=== PATIENT | male | born 1970 | race Caucasian/White ===

== ENCOUNTER 2022-01-29 08:02 | Emergency (ER) | payer OTHER ==
[2022-01-29 08:15] VITALS: BP 140/89; PULSE 103; RESP 18; TEMP 98.9; BMI 24.2
[2022-01-29] MEDS ORDERED: AMOXICILLIN 500 MG CAPSULE (FP) PO ONE (08:36)
[2022-01-29] MEDS ORDERED: IBUPROFEN 600 MG TABLET (FP) PO ONE ×2 (08:36→08:40)
[2022-01-29] MEDS ORDERED: AMOXICILLIN 250 MG CAPSULE ONE (08:39)
== END 2022-01-29 09:31 | disposition home or self-care (01) ==
LOC: JER 08:02
DX: U07.1 COVID-19 (principal); R50.9 Fever, unspecified; J02.9 Acute pharyngitis, unspecified
CPT/HCPCS: 0241U-QW; 87651; 99283-25

== ENCOUNTER 2023-12-27 11:47 | Inpatient (IN) | payer OTHER ==
[2023-12-27] MEDS ORDERED: PANTOPRAZOLE SODIUM 40 MG VIAL ONE (13:26)
[2023-12-27] MEDS ORDERED: OCTREOTIDE ACETATE 100 MCG/1 ML ONE ×2 (13:27→14:42)
[2023-12-27 13:42] LABS: BASO % 0.8 % (0-2.0); EOS % 4.6 % (0-4.5); HEMATOCRIT 40.4 % (35.4-49); HEMOGLOBIN 13.9 GM/dL (11.7-16.9); LYMPH % 13.4 % (8-40); MCHC 34.3 g/dl (32.0-35.9); MEAN PLT VOLUME 10.4 fl (7.5-11.1); MONO % 8.3 % (3.8-10.2); NEUT % 72.9 % (42.8-82.8); PLATELET COUNT 68 10^3/uL (134-434); RBC 3.96 M/mm3 (4.00-5.60); RDW 14.1 % (11.9-15.9); WHITE BLOOD COUNT 6.2 K/mm3 (4.0-10.0)
[2023-12-27] MEDS: PANTOPRAZOLE SODIUM 40 MG VIAL IVPUSH ONE (13:46)
[2023-12-27] MEDS: LACTATED RINGERS SOLUTION 1000 ML INFUS.BAG IV ONE (13:46)
[2023-12-27] MEDS: OCTREOTIDE ACETATE 50 MCG/1 ML - 1 ML VIAL IVPUSH ONE (13:46)
[2023-12-27 13:49] LABS: INR 1.49 (0.83-1.09); PROTHROMBIN TIME (PATIENT) 16.6 SEC (9.7-13.0)
[2023-12-27] MEDS ORDERED: ONDANSETRON 4 MG/2 ML VIAL ONE ×2 (13:51→14:42)
[2023-12-27 13:52] LABS: ACTIVATED PTT 37.8 SECONDS (25.2-36.5)
[2023-12-27 13:59] LABS: POTASSIUM 4.5 mmol/L (3.5-5.1)
[2023-12-27 14:01] LABS: BLOOD UREA NITROGEN 11.6 mg/dL (7-18); CALCIUM 9.1 mg/dL (8.5-10.1)
[2023-12-27 14:05] LABS: CREATININE 0.5 mg/dL (0.55-1.3)
[2023-12-27 14:07] LABS: BILIRUBIN,TOTAL 5.5 mg/dL (0.2-1); TOT PROT 8.1 g/dl (6.4-8.2)
[2023-12-27] MEDS ORDERED: diazePAM CARPU-JECT 10 MG/2 ML DISP.SYRIN ONE (14:41)
[2023-12-27] MEDS ORDERED: THIAMINE 100 MG TABLET ONE (14:42)
[2023-12-27] MEDS ORDERED: OCTREOTIDE ACETATE 500 MCG/1 ML - 1 ML VIAL ONE (14:43)
[2023-12-27 14:55] LABS: HIV INTERPRETATION NEGATIVE (NEGATIVE)
[2023-12-27] MEDS ORDERED: RAPID SEQUENCE INTUBATION KIT NR ONE ×2 (15:14→15:20)
[2023-12-27] MEDS ORDERED: KETAMINE HCL 200 MG/20 ML VIAL ONE (15:20)
[2023-12-27] MEDS: OCTREOTIDE ACETATE 200 MCG, OCTREOTIDE ACETATE 1,000 MCG in DEXTROSE 5%-WATER - 496 ML IVPB SCH (15:48)
[2023-12-27] MEDS: ONDANSETRON 4 MG/2 ML VIAL IVPB ONE (15:48)
[2023-12-27] MEDS: diazePAM CARPU-JECT 10 MG/2 ML DISP.SYRIN IVPUSH ONE (15:48)
[2023-12-27] MEDS ORDERED: PROPOFOL 20 ML ONE (15:56)
[2023-12-27] MEDS ORDERED: MIDAZOLAM HCL 2 MG/2 ML SINGLE DOSE VIAL ONE (15:56)
[2023-12-27 16:40] LABS: BASO % 1.2 % (0-2.0); EOS % 5.4 % (0-4.5); HEMATOCRIT 35.6 % (35.4-49); HEMOGLOBIN 12.1 GM/dL (11.7-16.9); LYMPH % 11.9 % (8-40); MCH 34.3 pg (25.7-33.7); MCHC 33.9 g/dl (32.0-35.9); MEAN CELL VOLUME 101.2 fl (80-96); MEAN PLT VOLUME 10.5 fl (7.5-11.1); MONO % 6.6 % (3.8-10.2); NEUT % 74.9 % (42.8-82.8); PLATELET COUNT 64 10^3/uL (134-434); RBC 3.52 M/mm3 (4.00-5.60); RDW 15.4 % (11.9-15.9); WHITE BLOOD COUNT 7.7 K/mm3 (4.0-10.0)
[2023-12-27 16:46] LABS: POTASSIUM 4.9 mmol/L (3.5-5.1)
[2023-12-27] MEDS ORDERED: THIAMINE HCL 200 MG/2 ML VIAL ONE (16:47)
[2023-12-27] MEDS ORDERED: MIDAZOLAM IN 0.9 % SOD.CHLORID 1 MG/1 ML PLAST..BAG ONE (16:47)
[2023-12-27 16:48] LABS: CALCIUM 8.2 mg/dL (8.5-10.1)
[2023-12-27 16:49] LABS: BLOOD UREA NITROGEN 13.3 mg/dL (7-18)
[2023-12-27 16:52] LABS: CREATININE 0.4 mg/dL (0.55-1.3)
[2023-12-27 16:53] LABS: ALBUMIN 2.4 g/dl (3.4-5.0)
[2023-12-27 16:54] LABS: BILIRUBIN,TOTAL 5.4 mg/dL (0.2-1); TOT PROT 6.6 g/dl (6.4-8.2)
[2023-12-27] MEDS ORDERED: PROPOFOL 1,000,000 MCG/100 ML VIAL ONE ×2 (17:43→18:01)
[2023-12-27] MEDS: THIAMINE HCL 200 MG/2 ML VIAL IVPB ONE (17:57)
[2023-12-27] MEDS: MIDAZOLAM IN 0.9 % SOD.CHLORID 100 MG/100 ML PLAST..BAG IVPB SCH (17:57)
[2023-12-27] MEDS: PROPOFOL 200 MG/20 ML VIAL IVPUSH ONE ×2 (17:58→21:09)
[2023-12-27] MEDS: FENTANYL NS IVPB 500 MCG/100 ML BAG IVPB SCH (19:57)
[2023-12-27] MEDS: PANTOPRAZOLE SODIUM 160 MG in SODIUM CHLORIDE 290 ML IVPB SCH (20:09)
[2023-12-27] MEDS: ERYTHROMYCIN INJECTION - 250 MG in SODIUM CHLORIDE 250 ML IVPB ONE (20:09)
[2023-12-27] MEDS: PROPOFOL 1,000,000 MCG/100 ML VIAL IVPB SCH (20:18)
[2023-12-27] MEDS: PANTOPRAZOLE SODIUM 40 MG VIAL IVPUSH SCH (21:05)
[2023-12-27] MEDS: FENTANYL IVPB 500 MCG/100 ML BAG IVPB SCH (21:08)
[2023-12-27] MEDS: CEFTRIAXONE 1 GM in DEXTROSE 5%-WATER - 50 ML IVPB SCH (21:08)
[2023-12-27] MEDS: PANTOPRAZOLE SODIUM 80 MG in SODIUM CHLORIDE 100 ML IVPB SCH (21:15)
[2023-12-27] MEDS: ERYTHROMYCIN *INJECTION* 500 MG VIAL IVPB STA (21:16)
[2023-12-27] MEDS: THIAMINE 100 MG TABLET PO ONE (21:17)
[2023-12-27] MEDS: MUPIROCIN 2% TOPICAL OINTMENT FOR DECOLONIZATION NS SCH (22:18)
[2023-12-27] MEDS: CHLORHEXIDINE GLUCONATE 4% CLEANSER FOR DECOLONIZATION TP SCH (22:19)
[2023-12-28 00:57] LABS: BASO % 0.5 % (0-2.0); EOS % 0.3 % (0-4.5); HEMATOCRIT 34.1 % (35.4-49); HEMOGLOBIN 11.8 GM/dL (11.7-16.9); LYMPH % 12.5 % (8-40); MCH 33.8 pg (25.7-33.7); MCHC 34.5 g/dl (32.0-35.9); MEAN CELL VOLUME 97.9 fl (80-96); MEAN PLT VOLUME 11.5 fl (7.5-11.1); MONO % 4.8 % (3.8-10.2); NEUT % 81.9 % (42.8-82.8); PLATELET COUNT 60 10^3/uL (134-434); RBC 3.49 M/mm3 (4.00-5.60); RDW 17.3 % (11.9-15.9); WHITE BLOOD COUNT 8.3 K/mm3 (4.0-10.0)
[2023-12-28 07:34] LABS: BASO % 0.8 % (0-2.0); EOS % 1.2 % (0-4.5); HEMATOCRIT 33.3 % (35.4-49); HEMOGLOBIN 11.5 GM/dL (11.7-16.9); LYMPH % 13.3 % (8-40); MCH 34.1 pg (25.7-33.7); MCHC 34.6 g/dl (32.0-35.9); MEAN CELL VOLUME 98.7 fl (80-96); MEAN PLT VOLUME 11.2 fl (7.5-11.1); MONO % 9.7 % (3.8-10.2); PLATELET COUNT 65 10^3/uL (134-434); RBC 3.38 M/mm3 (4.00-5.60); RDW 17.7 % (11.9-15.9); WHITE BLOOD COUNT 9.8 K/mm3 (4.0-10.0)
[2023-12-28 07:36] LABS: INR 1.64 (0.83-1.09); PROTHROMBIN TIME (PATIENT) 18.3 SEC (9.7-13.0)
[2023-12-28 07:38] LABS: ACTIVATED PTT 31.9 SECONDS (25.2-36.5)
[2023-12-28 07:40] LABS: POTASSIUM 4.3 mmol/L (3.5-5.1)
[2023-12-28 07:45] LABS: ALBUMIN 2.3 g/dl (3.4-5.0); BLOOD UREA NITROGEN 24.9 mg/dL (7-18); CALCIUM 7.9 mg/dL (8.5-10.1)
[2023-12-28 07:48] LABS: PHOSPHOROUS 4.4 mg/dL (2.5-4.9)
[2023-12-28 07:49] LABS: BILIRUBIN,TOTAL 4.4 mg/dL (0.2-1); TOT PROT 6.2 g/dl (6.4-8.2)
[2023-12-28 07:51] LABS: CREATININE 0.6 mg/dL (0.55-1.3)
[2023-12-28 11:47] LABS: BILIRUBIN,DIRECT 2.1 mg/dL (0.0-0.2)
[2023-12-28] MEDS: LACTATED RINGERS SOLUTION 1,000 ML/1,000 ML INFUS.BAG IV SCH (15:46)
[2023-12-28] MEDS: PANTOPRAZOLE SODIUM 40 MG VIAL IVPUSH SCH (21:10)
[2023-12-29 08:04] LABS: EOS % 5.7 % (0-4.5); HEMOGLOBIN 10.6 GM/dL (11.7-16.9); LYMPH % 13.9 % (8-40); MCH 34.1 pg (25.7-33.7); MCHC 34.2 g/dl (32.0-35.9); MEAN CELL VOLUME 99.6 fl (80-96); NEUT % 71.4 % (42.8-82.8); PLATELET COUNT 55 10^3/uL (134-434); RBC 3.11 M/mm3 (4.00-5.60); WHITE BLOOD COUNT 7.8 K/mm3 (4.0-10.0)
[2023-12-29 08:05] LABS: HEMATOCRIT 31.1 % (35.4-49); HEMOGLOBIN 10.6 GM/dL (11.7-16.9); MCH 34.5 pg (25.7-33.7); MCHC 34.3 g/dl (32.0-35.9); MEAN CELL VOLUME 100.7 fl (80-96); MEAN PLT VOLUME 10.6 fl (7.5-11.1); PLATELET COUNT 53 10^3/uL (134-434); RBC 3.08 M/mm3 (4.00-5.60); RDW 17.1 % (11.9-15.9); WHITE BLOOD COUNT 7.5 K/mm3 (4.0-10.0)
[2023-12-29 08:15] LABS: POTASSIUM 3.5 mmol/L (3.5-5.1)
[2023-12-29 08:22] LABS: ALBUMIN 2.2 g/dl (3.4-5.0); CALCIUM 7.6 mg/dL (8.5-10.1); MAGNESIUM 2.1 mg/dL (1.8-2.4)
[2023-12-29 08:23] LABS: INR 1.57 (0.83-1.09); PROTHROMBIN TIME (PATIENT) 17.5 SEC (9.7-13.0)
[2023-12-29 08:25] LABS: CREATININE 0.4 mg/dL (0.55-1.3)
[2023-12-29 08:26] LABS: ACTIVATED PTT 31.7 SECONDS (25.2-36.5)
[2023-12-29 08:27] LABS: BILIRUBIN,TOTAL 3.2 mg/dL (0.2-1); TOT PROT 5.8 g/dl (6.4-8.2)
[2023-12-29] MEDS: PNEUMOC 20-VAL CONJ-DIP CRM/PF 0.5 ML SYRINGE IM ONE (12:11)
[2023-12-29 16:52] LABS: BASO % 1.1 % (0-2.0); EOS % 6.3 % (0-4.5); HEMATOCRIT 31.7 % (35.4-49); HEMOGLOBIN 10.9 GM/dL (11.7-16.9); LYMPH % 13.8 % (8-40); MCHC 34.3 g/dl (32.0-35.9); MEAN CELL VOLUME 99.2 fl (80-96); MEAN PLT VOLUME 10.2 fl (7.5-11.1); MONO % 7.5 % (3.8-10.2); NEUT % 71.3 % (42.8-82.8); PLATELET COUNT 53 10^3/uL (134-434); RBC 3.19 M/mm3 (4.00-5.60); RDW 16.9 % (11.9-15.9); WHITE BLOOD COUNT 7.2 K/mm3 (4.0-10.0)
[2023-12-29] MEDS: POTASSIUM PHOSPHATE 30 MM in DEXTROSE 5%-WATER - 500 ML IVPB ONE (17:17)
[2023-12-30 08:24] LABS: BASO % 1.1 % (0-2.0); EOS % 8.9 % (0-4.5); HEMATOCRIT 36.2 % (35.4-49); HEMOGLOBIN 12.3 GM/dL (11.7-16.9); LYMPH % 13.1 % (8-40); MCH 34.2 pg (25.7-33.7); MCHC 34.1 g/dl (32.0-35.9); MEAN CELL VOLUME 100.3 fl (80-96); MEAN PLT VOLUME 10.8 fl (7.5-11.1); MONO % 6.5 % (3.8-10.2); NEUT % 70.4 % (42.8-82.8); PLATELET COUNT 64 10^3/uL (134-434); RBC 3.61 M/mm3 (4.00-5.60); RDW 17.1 % (11.9-15.9); WHITE BLOOD COUNT 6.2 K/mm3 (4.0-10.0)
[2023-12-30 08:31] LABS: INR 1.5 (0.83-1.09); PROTHROMBIN TIME (PATIENT) 16.7 SEC (9.7-13.0)
[2023-12-30 08:34] LABS: ACTIVATED PTT 31.7 SECONDS (25.2-36.5)
[2023-12-30 08:39] LABS: POTASSIUM 3.9 mmol/L (3.5-5.1)
[2023-12-30 08:42] LABS: CALCIUM 7.9 mg/dL (8.5-10.1)
[2023-12-30 08:43] LABS: ALBUMIN 2.6 g/dl (3.4-5.0); BLOOD UREA NITROGEN 10.2 mg/dL (7-18); MAGNESIUM 2.2 mg/dL (1.8-2.4)
[2023-12-30 08:46] LABS: CREATININE 0.5 mg/dL (0.55-1.3); PHOSPHOROUS 3.3 mg/dL (2.5-4.9)
[2023-12-30 08:47] LABS: BILIRUBIN,TOTAL 3.9 mg/dL (0.2-1)
[2023-12-30 08:48] LABS: TOT PROT 6.9 g/dl (6.4-8.2)
[2023-12-30] MEDS: POLYETHYLENE GLYCOL (HEALTHYLAX) 3350 17 GM PACKET PO SCH (16:52)
[2023-12-30] MEDS: LACTULOSE 20 GM/30 ML UDC (FOR ORAL USE ONLY) PO SCH (18:30)
[2023-12-30] MEDS: PANTOPRAZOLE SODIUM 40 MG VIAL IVPUSH SCH (21:14)
[2023-12-30] MEDS ORDERED: PANTOPRAZOLE 40 MG TABLET PO SCH (22:00)
[2023-12-31 08:26] LABS: BASO % 1.5 % (0-2.0); EOS % 10.1 % (0-4.5); HEMATOCRIT 35.1 % (35.4-49); HEMOGLOBIN 12.1 GM/dL (11.7-16.9); LYMPH % 16.2 % (8-40); MCH 34.3 pg (25.7-33.7); MCHC 34.5 g/dl (32.0-35.9); MEAN CELL VOLUME 99.5 fl (80-96); MEAN PLT VOLUME 10.5 fl (7.5-11.1); MONO % 8.3 % (3.8-10.2); NEUT % 63.9 % (42.8-82.8); PLATELET COUNT 61 10^3/uL (134-434); RBC 3.53 M/mm3 (4.00-5.60); RDW 16.7 % (11.9-15.9)
[2023-12-31 08:39] LABS: INR 1.57 (0.83-1.09); PROTHROMBIN TIME (PATIENT) 17.5 SEC (9.7-13.0)
[2023-12-31 08:47] LABS: POTASSIUM 3.5 mmol/L (3.5-5.1)
[2023-12-31 08:52] LABS: CALCIUM 7.9 mg/dL (8.5-10.1)
[2023-12-31 08:53] LABS: ALBUMIN 2.6 g/dl (3.4-5.0); MAGNESIUM 2.3 mg/dL (1.8-2.4)
[2023-12-31 08:56] LABS: CREATININE 0.5 mg/dL (0.55-1.3)
[2023-12-31 08:57] LABS: PHOSPHOROUS 3.3 mg/dL (2.5-4.9)
[2023-12-31 08:58] LABS: BILIRUBIN,TOTAL 3.8 mg/dL (0.2-1); TOT PROT 6.7 g/dl (6.4-8.2)
[2023-12-31] MEDS: THIAMINE 100 MG TABLET PO SCH (10:41)
[2023-12-31] MEDS: FOLIC ACID 1 MG TABLET (FP) PO SCH (10:41)
[2023-12-31 14:37] VITALS: BMI 22.5
[2023-12-31] MEDS: CEFTRIAXONE 1 GM in DEXTROSE 5%-WATER - 50 ML IVPB ONE (14:44)
[2023-12-31] MEDS: LACTULOSE 20 GM/30 ML UDC (FOR ORAL USE ONLY) PO SCH (14:44)
[2023-12-31 16:04] VITALS: BP 120/74; TEMP 98
[2023-12-31 18:44] VITALS: PULSE 70; RESP 16
[2023-12-31] MEDS ORDERED: PANTOPRAZOLE 40 MG TABLET PO SCH (22:00)
== END 2023-12-31 18:45 | disposition home or self-care (01) | DRG 242 ==
LOC: JER 11:47 → JERBED 15:53 → JICU 18:59
PROVIDERS: ADMIT Internal Medicine Pulmonary Disease; ATTEND Internal Medicine
PROC: 5A1935Z Respiratory Ventilation, Less than 24 Consecutive Hours (ICD-10-PCS; 2023-12-27)
PROC: 05HM33Z Insertion of Infusion Device into Right Internal Jugular Vein, Percutaneous Approach (ICD-10-PCS; 2023-12-27)
PROC: 06L38CZ Occlusion of Esophageal Vein with Extraluminal Device, Via Natural or Artificial Opening Endoscopic (ICD-10-PCS; 2023-12-27)
PROC: 30233N1 Transfusion of Nonautologous Red Blood Cells into Peripheral Vein, Percutaneous Approach (ICD-10-PCS; 2023-12-27)
PROC: 0BH17EZ Insertion of Endotracheal Airway into Trachea, Via Natural or Artificial Opening (ICD-10-PCS; principal; 2023-12-27 15:15)
DX: I85.01 Esophageal varices with bleeding (principal); K70.30 Alcoholic cirrhosis of liver without ascites; D62 Acute posthemorrhagic anemia; K92.0 Hematemesis; F10.20 Alcohol dependence, uncomplicated; K26.4 Chronic or unspecified duodenal ulcer with hemorrhage; D13.1 Benign neoplasm of stomach
CPT/HCPCS: 36415; 71045-TC-FY; 76705-TC; 80053; 82140; 82248; 82550; 82962; 82977; 83735; 84100; 85025; 85027; 85610; 85730; 86704; 86708; 86803; 86900; 86922; 87340; 87389; 87517; 87635; 90677; 93005; 93010; 94002; 99285-25; G0009; P9058

== ENCOUNTER 2024-01-23 04:36 | Day surgery (SDC) | payer OTHER ==
[2024-01-17 12:22] VITALS: BMI 25.8
[2024-01-23 10:08] VITALS: TEMP 98.5
[2024-01-23 10:35] VITALS: BP 114/66; PULSE 67; RESP 16
== END 2024-01-23 10:47 | disposition home or self-care (01) ==
LOC: JASU-ENDO 04:36
PROVIDERS: ATTEND Internal Medicine Gastroenterology
PROC: 0DJ08ZZ Inspection of Upper Intestinal Tract, Via Natural or Artificial Opening Endoscopic (ICD-10-PCS; 2024-01-23)
PROC: 0DJD8ZZ Inspection of Lower Intestinal Tract, Via Natural or Artificial Opening Endoscopic (ICD-10-PCS; principal; 2024-01-23 09:00)
DX: Z12.11 Encounter for screening for malignant neoplasm of colon (principal); K55.20 Angiodysplasia of colon without hemorrhage; K57.30 Diverticulosis of large intestine without perforation or abscess without bleeding; I85.01 Esophageal varices with bleeding